=== PATIENT | female | born 1985 | race Caucasian/White ===

== ENCOUNTER 2022-11-10 15:19 | Emergency (ER) | payer BC, SELFPAY ==
[2022-11-10 15:35] VITALS: BP 127/91; PULSE 103; RESP 16; TEMP 37.1; O2SAT 96; BMI 25.1
[2022-11-10 17:03] VITALS: BP 130/88; PULSE 85; RESP 16; TEMP 36.7; O2SAT 96
--- NOTE | 2022-11-10 18:46 | ED_ITS ---
HPI - General Adult General Chief complaint: Extremity Pain/Injury, Upper Stated complaint: Cold sensation R side body Time Seen by Provider: 11/10/22 18:14 History of Present Illness HPI narrative: Spoke with Dr Reid over the phone today. Has hx of Reynalds disease, however over the last few days, just the right arm and right leg have been turning colors and going numb. Patient stated her toddler sat on her neck 3 weeks ago and has been having increasingly more pain in the neck since then. Right had turned a purplish in triage but was resolved when position would change or elevate arm. 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 Has orthostatic intolerance as well. 37-year-old woman sent by primary care provider to the emergency department with concern of apparent neck injury. She is right-hand dominant. Notes a history of Raynaud's but when questioned further sounds like that diagnosis has not been formally made and isn't currently seeing a psychological tests sales agent. Intermittently over the last 2 weeks right arm and right leg have been feeling cool. More specifically the right foot. This can occur maybe 10 times a day. Her hand can be tingly as well especially with elevation. She has some headache in a band over her forehead and down around to her neck and soreness around her neck is been increasingly more uncomfortable. Tongue has also been numb over this time as well. Around 2 weeks ago was seated cross-legged on the floor when her toddler sounds like jumped on her back/neck hyper flexing her neck in the process. She is not describing episodes of focal/limb weakness. Later mentions a history of migraines as well. Complicated history where had COVID 3 years ago with numerous residual symptoms including brain fog and POTS among others, so much so that has had to go on disability. Has been accomplished academic at the collegiate level. Related Data Home Medications Medication Instructions Recorded Confirmed levothyroxine 137 mcg tablet 137 mcg PO DAILY 07/22/22 11/10/22 (Synthroid) naltrexone 50 mg tablet 4.5 mg PO QDAY 07/22/22 07/22/22 sertraline 100 mg tablet 100 mg PO QAM 11/10/22 11/10/22 trazodone 100 mg tablet 100 mg PO QPM 11/10/22 11/10/22 zolpidem 10 mg tablet 10 mg PO QPM PRN insomnia 11/10/22 11/10/22 Allergies Allergy/AdvReac Type Severity Reaction Status Date / Time No Known Drug Allergies Allergy Verified 11/10/22 15:34 Review of Systems Status of ROS: Reports: 6 or more systems reviewed and unremarkable except as noted in History and below [facility] Social History Smoking Status: Never smoker Do you use any of these nicotine containing products: None Second hand tobacco smoke exposure: No How often do you have a drink containing alcohol: never AUDIT-C Alcohol total score: 0 Non-prescribed substance use: denies use service: No Exam Narrative: Exam Narrative: Pleasant. Lying flat per preference when I enter the room. Cranial nerves 2-12 are intact. Speaking easily breathing easily. Head looks to be atraumatic. She does have a good deal of trapezial muscle tension more so on the right than the left and uncomfortable here as well. No midline tenderness. Neck is supple. Lungs are clear. Heart with regular rate and rhythm without murmur rub or gallop. She has full strength in her extremities. Subjectively tingly in her right hand with elevation. Negative compression testing considering carpal tunnel. As she holds her hands down in her lap she notes that her knuckles are starting to get dark. I can appreciate maybe some subtle darkening in the MCP joints on the dorsal surface on the right hand. Has strong peripheral pulses and well perfused. Does not appear to have a loss of sensation. Skin is not cool. Const: Vital Signs, click to edit/add: Vital Signs - 24 hr 11/10/22 15:35 11/10/22 17:03 Temperature 98.8 F 98.1 F Pulse Rate [Pulse Oximeter] 103 H 85 Respiratory Rate 16 16 Blood Pressure [Le ft Upper Arm] 127/91 H 130/88 Pulse Oximetry 96 96 Oxygen Delivery Me thod Room Air Room Air Documenting provider has reviewed patient's vital signs: yes Course Vital Signs Vital signs: Initial Vital Signs Temperature 98.8 F 11/10/22 15:35 Temperature Source Temporal Artery Scan 11/10/22 15:35 Pulse Rate 103 H 11/10/22 15:35 Pulse Rhythm Regular 11/10/22 15:35 Pulse Strength 3+ Normal 11/10/22 15:35 Respiratory Rate 16 11/10/22 15:35 Blood Pressure 127/91 H 11/10/22 15:35 Blood Pressure Mean 103 11/10/22 15:35 Blood Pressure Position Sitting 11/10/22 15:35 Pulse Oximetry 96 11/10/22 15:35 Oxygen Delivery Method Room Air 11/10/22 15:35 Vital Signs Temperature 98.8 F 11/10/22 15:35 Pulse Rate 103 H 11/10/22 15:35 Respiratory Rate 16 11/10/22 15:35 Blood Pressure 127/91 H 11/10/22 15:35 Pulse Oximetry 96 11/10/22 15:35 Oxygen Delivery Method Room Air 11/10/22 15:35 Temperature 98.1 F 11/10/22 17:03 Pulse Rate 85 11/10/22 17:03 Respiratory Rate 16 11/10/22 17:03 Blood Pressure 130/88 11/10/22 17:03 Pulse Oximetry 96 11/10/22 17:03 Oxygen Delivery Method Room Air 11/10/22 17:03 Medical Decision Making MDM Narrative Medical decision making narrative: Has been quite some time at least more than 6 months and she has had any lab oratory evaluation. I think that is reasonable to check. Would not be checking vitamin levels that might be contributing to some of these symptoms. With the tongue as described along with these vague symptoms in the extremities might warrant central imaging. I do not think there are findings consistent with a neck injury beyond cervical strain/sprain and tension causing some headache. It does appear to be peripheral vascular in nature as described. Symptoms appear to long induration or quickly intermittent I think to be consistent with migraine. Did discuss with Neurology on-call and will proceed MRI of the brain; unusually able to do that at this late hour. Labs are wholly unremarkable including CBC and chemistries and inflammatory markers. I review MRI brain images. Radiology over-read as below The paranasal sinuses demonstrate mild ethmoid air cell and maxillary sinus mucosal thickening. The mastoid air cells demonstrate fluid on the left. The calvarium is unremarkable. IMPRESSION: 1. No acute ischemia in the brain. 2. Few non-specific foci of T2/FLAIR signal hyperintensity in the right frontal subcortical white matter. Differential considerations include sequelae of migraines, prior trauma, infection, microangiopathic changes or demyelination. I discussed these finding with Ms. Arnold. Sounds like these are not new findings. Lab Data Lab results reviewed: Yes I reviewed the patient's lab results Labs: Lab Results 11/10/22 Range/Units 18:52 WBC 5.80 (4.50-11.00) K/uL RBC 4.86 (4.00-5.20) m/uL Hgb 14.2 (12.0-16.0) gm/dL Hct 41.9 (33.0-51.0) % MCV 86 (80-100) fL MCH 29 (26-34) pg MCHC 34 (32-36) gm/dL RDW Coeff of Jose 11.6 (11.5-15.5) % Plt Count 247 (140-440) K/uL Neut % (Auto) 53.1 (42.0-72.0) % Lymph % (Auto) 35.5 (20-44) % Petroleum % (Auto) 9.8 (0.0-11.0) % Eos % (Auto) 0.7 (0.0-7.0) % Baso % (Auto) 0.7 (0.0-3.0) % Neut # (Auto) 3.08 (1.7-7.0) K/uL Lymph # (Auto) 2.06 (0.90-2.90) K/uL Petroleum # (Auto) 0.60 (0.00-0.90) K/UL Eos # (Auto) 0.04 (0.00-0.50) K/uL Baso # (Auto) 0.04 (0.00-0.30) K/uL ESR 7 (2-20) mm/hr Sodium 139 (135-149) mmol/L Potassium 4.6 (3.6-5.1) mmol/L Chloride 104 (96-114) mmol/L Carbon Dioxide 24 (20-32) mmol/L BUN 17 (5-24) mg/dL Creatinine 0.5 (0.5-1.5) mg/dL Estimated Creat Clear 157.87 Estimated GFR 122 ml/min Glucose 94 (60-115) mg/dL Calcium 9.3 (8.4-10.6) mg/dL Magnesium 2.1 (1.5-2.6) mg/dL C-Reactive Protein 0.6 (0.5-1.0) mg/dL Discharge Plan Discharge Clinical Impression: Paresthesia, Neck strain Condition: Stable Additional Instructions: I think some of your headache is related to tension in strained neck muscles. These pull-down exercises as demonstrated doing them few times daily might be helpful. See also handout on upper back exercises. I would follow-up with Dr. Reid for next steps/recommendations and evaluation. Might include evaluation again by neurology or vitamin levels... Hard to say that this is not related to COVID injury or history of migraines but then you also have what would seem to be peripheral vascular symptomatology. Be seen otherwise for new and focal weakness, marked density of this paresthesia, uncontrolled headache, associated fever. Activity Level: No Restrictions Discharge Diet: Regular Prescriptions: No Action levothyroxine [Synthroid] 137 mcg tablet 137 mcg PO DAILY Patient Comments: TAKE 1 TABLET (137 MCG) BY MOUTH BEFORE BREAKFAST. naltrexone 50 mg tablet 4.5 mg PO QDAY sertraline 100 mg tablet 100 mg PO QAM trazodone 100 mg tablet 100 mg PO QPM zolpidem 10 mg tablet 10 mg PO QPM PRN (Reason: insomnia) Follow Up/Referrals: Provider,Not a Local [Primary Care Provider] -
[2022-11-10 18:58] LABS: Basophils Absolute Auto 0.04 K/uL (0.00-0.30); Basophils Percent Auto 0.7 % (0.0-3.0); Eosinophils Absolute Auto 0.04 K/uL (0.00-0.50); Eosinophils Percent Auto 0.7 % (0.0-7.0); Hematocrit 41.9 % (33.0-51.0); Hemoglobin* 14.2 gm/dL (12.0-16.0); Immature Granulocytes Abs Auto 0.01 K/uL (0.00-0.30); Immature Granulocytes Pct Auto 0.2 %; Lymphocytes Absolute Auto 2.06 K/uL (0.90-2.90); Lymphocytes Percent Auto 35.5 % (20-44); Mean Corpuscular HGB Conc 34 gm/dL (32-36); Mean Corpuscular Hemoglobin 29 pg (26-34); Mean Corpuscular Volume 86 fL (80-100); Monocytes Percent Auto 9.8 % (0.0-11.0); Neutrophils Absolute Auto 3.08 K/uL (1.7-7.0); Neutrophils Percent Auto 53.1 % (42.0-72.0); Platelet Count* 247 K/uL (140-440); RDW Coefficient of Variation % 11.6 % (11.5-15.5); Red Blood Count 4.86 m/uL (4.00-5.20)
[2022-11-10 19:16] LABS: Chloride* 104 mmol/L (96-114); Potassium* 4.6 mmol/L (3.6-5.1); Sodium* 139 mmol/L (135-149)
[2022-11-10 19:17] LABS: Slide Review Reflex No
[2022-11-10 19:19] LABS: Creatinine* 0.5 mg/dL (0.5-1.5); Est. Creatinine Clearance* 157.87; Estimated Glomerular Filt Rate 122 ml/min
[2022-11-10 19:20] LABS: Blood Urea Nitrogen* 17 mg/dL (5-24); Calcium* 9.3 mg/dL (8.4-10.6); Carbon Dioxide* 24 mmol/L (20-32); Glucose* 94 mg/dL (60-115)
[2022-11-10 19:23] LABS: C Reactive Protein* 0.6 mg/dL (0.5-1.0)
--- NOTE | 2022-11-10 19:27 | CRLHL7_ITS ---
For Patients: As a result of the Cures Act, medical imaging exams and procedure reports are released immediately into your electronic medical record. You may view this report before your referring provider. If you have questions, please contact your health care provider. EXAMINATION: MRI BRAIN DATE: 11/10/2022 HISTORY: Patient with tongue numbness. TECHNIQUE: Multi-sequence, multiplanar MRI examination of the brain was performed. COMPARISON: None. FINDINGS: There is no restricted diffusion in the brain to indicate the presence of acute ischemia. There are a few foci of T2/FLAIR signal hyperintensity in the right frontal subcortical white matter. The ventricular size is normal for age. The orbits are unremarkable. The paranasal sinuses demonstrate mild ethmoid air cell and maxillary sinus mucosal thickening. The mastoid air cells demonstrate fluid on the left. The calvarium is unremarkable. IMPRESSION: 1. No acute ischemia in the brain. 2. Few non-specific foci of T2/FLAIR signal hyperintensity in the right frontal subcortical white matter. Differential considerations include sequelae of migraines, prior trauma, infection, microangiopathic changes or demyelination. Dictated by: Wilberto Tan MD @ 11/10/2022 20:51:24 (Electronically Signed)
[2022-11-10 19:29] LABS: Magnesium* 2.1 mg/dL (1.5-2.6)
[2022-11-10 19:54] LABS: Erythrocyte SedimentationRate* 7 mm/hr (2-20)
== END 2022-11-10 22:01 | disposition home or self-care (01) ==
PROVIDERS: Emergency Provider Family Medicine
DX: S16.1XXA Strain of muscle, fascia and tendon at neck level, initial encounter (principal); R20.2 Paresthesia of skin
CPT/HCPCS: 36415; 70551; 80048; 83735; 85025; 85651; 86140; 99283; 99284

== ENCOUNTER 2022-12-22 06:34 | Emergency (ER) | payer MEDICARE, BC, SELFPAY ==
[2022-12-22] VITALS (9 sets, daily range): BP systolic 111–124; BP diastolic 75–82; PULSE 60–85; RESP 18; TEMP 36.2; O2SAT 96–100
[2022-12-22 07:31] LABS: Basophils Absolute Auto 0.01 K/uL (0.00-0.30); Basophils Percent Auto 0.2 % (0.0-3.0); Eosinophils Absolute Auto 0.03 K/uL (0.00-0.50); Eosinophils Percent Auto 0.6 % (0.0-7.0); Hematocrit 37.8 % (33.0-51.0); Hemoglobin* 12.9 gm/dL (12.0-16.0); Immature Granulocytes Abs Auto 0.01 K/uL (0.00-0.30); Immature Granulocytes Pct Auto 0.2 %; Lymphocytes Percent Auto 16.9 % (20-44); Mean Corpuscular HGB Conc 34 gm/dL (32-36); Mean Corpuscular Hemoglobin 29 pg (26-34); Mean Corpuscular Volume 85 fL (80-100); Monocytes Percent Auto 6.9 % (0.0-11.0); Neutrophils Percent Auto 75.2 % (42.0-72.0); Platelet Count* 245 K/uL (140-440); RDW Coefficient of Variation % 11.3 % (11.5-15.5); Red Blood Count 4.43 m/uL (4.00-5.20)
[2022-12-22 07:35] LABS: Slide Review Reflex No
[2022-12-22 07:44] LABS: Albumin* 4.4 g/dL (3.3-5.0); Chloride* 105 mmol/L (96-114); Sodium* 137 mmol/L (135-149)
[2022-12-22 07:45] LABS: Potassium* 3.8 mmol/L (3.6-5.1)
--- NOTE | 2022-12-22 07:45 | ED.GENADULT ---
HPI - General Adult General Date Seen: 12/22/22 <Deepak Pool MD - Last Filed: 12/22/22 13:05> Chief complaint: Abdominal Pain <Deepak Pool MD - Last Filed: 12/22/22 13:05> Stated complaint: L abdominal pain for a week <Deepak Pool MD - Last Filed: 12/22/22 13:05> Time Seen by Provider: 12/22/22 07:14 <Deepak Pool MD - Last Filed: 12/22/22 13:05> Source: patient <Deepak Pool MD - Last Filed: 12/22/22 13:05> Mode of arrival: ambulatory <Deepak Pool MD - Last Filed: 12/22/22 13:05> Limitations: no limitations <Deepak Pool MD - Last Filed: 12/22/22 13:05> History of Present Illness HPI narrative: Patient comes in for the 2nd time in a week with complaints of abdominal pain. One week ago she was evaluated with labs and a CT scan and her pain was felt to be musculoskeletal. She is discharged with Zofran and Toradol in seem to be getting better for a few days. Now for the past couple of days her pain is worse prompting her to return. There has been no fevers but she does have chills. Her pain is mainly in the left upper quadrant but she also has pain in the right upper quadrant. No previous abdominal surgeries. No issue with bowel or bladder function. No dysuria, urgency, frequency. The pain did seem to get worse last time after she had eaten [employer] but she has not eaten any worrisome foods in the last couple of days. She is taking with Pepcid AC and ibuprofen for pain. She denies symptoms of acid reflux. There have been no black or bloody stools. She is on low-dose naltrexone as an experimental treatment for chronic fatigue. She also takes Synthroid, sertraline, trazodone, Ambien regularly. <Deepak Pool MD - Last Filed: 12/22/22 13:05> Related Data Home medications: Home Medications Medication Instructions Recorded Confirmed levothyroxine 137 mcg tablet 137 mcg PO DAILY 07/22/22 11/10/22 (Synthroid) naltrexone 50 mg tablet 4.5 mg PO QDAY 07/22/22 07/22/22 sertraline 100 mg tablet 100 mg PO QAM 11/10/22 11/10/22 trazodone 100 mg tablet 100 mg PO QPM 11/10/22 11/10/22 zolpidem 10 mg tablet 10 mg PO QPM PRN insomnia 11/10/22 11/10/22 Previous Rx's Medication Instructions Recorded lorazepam 1 mg tablet 0.5 - 1 mg (0.5 - 1 x 1 mg) PO TID 12/22/22 PRN #8 tabs <Deepak Pool MD - Last Filed: 12/22/22 13:05> Allergies/adverse reactions: Allergies Allergy/AdvReac Type Severity Reaction Status Date / Time No Known Drug Allergies Allergy Verified 12/15/22 19:44 <Deepak Pool MD - Last Filed: 12/22/22 13:05> Review of Systems Narrative: Review of systems is outlined above otherwise noted to be negative. She has anxiety and depression as well as chronic fatigue. <Deepak Pool MD - Last Filed: 12/22/22 13:05> [facility] Social History: Social History Smoking Status: Never smoker Do you use any of these nicotine containing products: None Second hand tobacco smoke exposure: No How often do you have a drink containing alcohol: never How often do you have six or more drinks on one occasion: Never AUDIT-C Alcohol total score: 0 Non-prescribed substance use: denies use service: No <Deepak Pool MD - Last Filed: 12/22/22 13:05> Exam Narrative: Exam Narrative: Vitals noted. She is shivering loudly. HEENT: Conjunctiva clear. Posterior pharynx is clear without erythema or exudate. Neck is supple without adenopathy. Lungs: Clear to auscultation in all cooper. No wheezes, rales, rhonchi. Heart: Regular rate and rhythm without murmur. Abdomen: Soft with no palpable masses. She is tender really throughout most of the abdomen but worst in the left upper quadrant and right upper quadrant. No guarding, rigidity, rebound. Bowel sounds are normal. Extremities: No cyanosis or edema. Good distal pulses. Skin: No abnormalities noted of the exposed skin. Neurologic: Awake, alert, fully oriented. Neurologic exam is nonfocal. <Deepak Pool MD - Last Filed: 12/22/22 13:05> Const: Vital Signs, click to edit/add: Vital Signs - 24 hr 12/22/22 06:40 12/22/22 07:49 12/22/22 08:00 Temperature 97.2 F L Pulse Rate 61 60 Pulse Rate [Left P ulse Oximeter] 84 Respiratory Rate 18 Blood Pressure Blood Pressure [Ri ght Upper Arm] 124/76 Pulse Oximetry 98 96 97 Oxygen Delivery Me thod Room Air 12/22/22 08:14 12/22/22 08:30 12/22/22 08:31 Temperature Pulse Rate 82 72 85 Pulse Rate [Left P ulse Oximeter] Respiratory Rate Blood Pressure 114/82 124/75 Blood Pressure [Ri ght Upper Arm] Pulse Oximetry 97 100 98 Oxygen Delivery Me thod 12/22/22 09:17 12/22/22 09:18 12/22/22 09:30 Temperature Pulse Rate 62 61 61 Pulse Rate [Left P ulse Oximeter] Respiratory Rate Blood Pressure 111/77 Blood Pressure [Ri ght Upper Arm] Pulse Oximetry 97 96 97 Oxygen Delivery Me thod <Deepak Pool MD - Last Filed: 12/22/22 13:05> Vital Signs, click to edit/add: Vital Signs - 24 hr 12/22/22 06:40 12/22/22 07:49 12/22/22 08:00 Temperature 97.2 F L Pulse Rate 61 60 Pulse Rate [Left P ulse Oximeter] 84 Respiratory Rate 18 Blood Pressure Blood Pressure [Ri ght Upper Arm] 124/76 Pulse Oximetry 98 96 97 Oxygen Delivery Me thod Room Air 12/22/22 08:14 12/22/22 08:30 12/22/22 08:31 Temperature Pulse Rate 82 72 85 Pulse Rate [Left P ulse Oximeter] Respiratory Rate Blood Pressure 114/82 124/75 Blood Pressure [Ri ght Upper Arm] Pulse Oximetry 97 100 98 Oxygen Delivery Me thod 12/22/22 09:17 12/22/22 09:18 12/22/22 09:30 Temperature Pulse Rate 62 61 61 Pulse Rate [Left P ulse Oximeter] Respiratory Rate Blood Pressure 111/77 Blood Pressure [Ri ght Upper Arm] Pulse Oximetry 97 96 97 Oxygen Delivery Me thod <Deepak Luna MD - Last Filed: 12/26/22 14:12> Course Course Hospital Course: Patient is seen and examined. Is certainly possible that this is pancreatitis or cholecystitis despite the negative workup one week ago. I did give her 50 mcg of IV fentanyl despite her use of low-dose naltrexone. Unclear how well this will work. Labs and another CT of her abdomen are ordered. She is also given a L of saline. <Deepak Pool MD - Last Filed: 12/22/22 13:05> Reevaluation(s) Reevaluation #1: After all of her labs came back normal the patient reconsider the need for another CT scan. By that point I would turn her care over to Dr. Luna spent some time addressing the underlying anxiety issues. Please see his note for completion of her encounter. <Deepak Pool MD - Last Filed: 12/22/22 13:05> Reevaluation #2: Jeremy -- I received Allison at change of shift pending CT imaging. Went to re-evaluate. Was tremulous in apparent discomfort by what I perceived was marked anxiety. She was questioning need for repeat CT scan as it has just been done and labs noted to be normal. We discussed further potential cause of her discomfort. She recalls again how her child had need her caused pain to this area of her upper left abdomen. Pain seems to have escalated since. Re-examination she has some tenderness along the left rib margin. Not clearly reproducible into the abdomen. Does note some gastrointestinal symptoms too or least the discomfort seemed amplified after eating [employer]. Decided to trial Zofran, lidocaine patch, GI cocktail and lorazepam. On reassessment lorazepam I think was particularly effective. Seems more relaxed. Able to discuss this as above. I think complicated by anxiety initial perception of pain has gotten amplified tremendously into almost a regional response. Overall much improved. Please see patient discharge plan. <Deepak Luna MD - Last Filed: 12/26/22 14:12> Vital Signs Vital signs: Initial Vital Signs Temperature 97.2 F L 12/22/22 06:40 Temperature Source Temporal Artery Scan 12/22/22 06:40 Pulse Rate 84 12/22/22 06:40 Pulse Rhythm Regular 12/22/22 06:40 Respiratory Rate 18 12/22/22 06:40 Blood Pressure 124/76 12/22/22 06:40 Blood Pressure Mean 92 12/22/22 06:40 Blood Pressure Position Sitting 12/22/22 06:40 Pulse Oximetry 98 12/22/22 06:40 Oxygen Delivery Method Room Air 12/22/22 06:40 Vital Signs Temperature 97.2 F L 12/22/22 06:40 Pulse Rate 84 12/22/22 06:40 Respiratory Rate 18 12/22/22 06:40 Blood Pressure 124/76 12/22/22 06:40 Pulse Oximetry 98 12/22/22 06:40 Oxygen Delivery Method Room Air 12/22/22 06:40 Temperature 97.2 F L 12/22/22 06:40 Pulse Rate 61 12/22/22 09:30 Respiratory Rate 18 12/22/22 06:40 Blood Pressure 111/77 12/22/22 09:18 Pulse Oximetry 97 12/22/22 09:30 Oxygen Delivery Method Room Air 12/22/22 06:40 <Deepak Pool MD - Last Filed: 12/22/22 13:05> Initial Vital Signs Temperature 97.2 F L 12/22/22 06:40 Temperature Source Temporal Artery Scan 12/22/22 06:40 Pulse Rate 84 12/22/22 06:40 Pulse Rhythm Regular 12/22/22 06:40 Respiratory Rate 18 12/22/22 06:40 Blood Pressure 124/76 12/22/22 06:40 Blood Pressure Mean 92 12/22/22 06:40 Blood Pressure Position Sitting 12/22/22 06:40 Pulse Oximetry 98 12/22/22 06:40 Oxygen Delivery Method Room Air 12/22/22 06:40 Vital Signs Temperature 97.2 F L 12/22/22 06:40 Pulse Rate 84 12/22/22 06:40 Respiratory Rate 18 12/22/22 06:40 Blood Pressure 124/76 12/22/22 06:40 Pulse Oximetry 98 12/22/22 06:40 Oxygen Delivery Method Room Air 12/22/22 06:40 Temperature 97.2 F L 06/16/23 06:40 Pulse Rate 61 12/22/22 09:30 Respiratory Rate 18 12/22/22 06:40 Blood Pressure 111/77 12/22/22 09:18 Pulse Oximetry 97 12/22/22 09:30 Oxygen Delivery Method Room Air 12/22/22 06:40 <Deepak Luna MD - Last Filed: 12/26/22 14:12> Medical Decision Making Lab Data Labs: Lab Results 12/22/22 Range/Units 07:20 WBC 5.10 (4.50-11.00) K/uL RBC 4.43 (4.00-5.20) m/uL Hgb 12.9 (12.0-16.0) gm/dL Hct 37.8 (33.0-51.0) % MCV 85 (80-100) fL MCH 29 (26-34) pg MCHC 34 (32-36) gm/dL RDW Coeff of Jose 11.3 L (11.5-15.5) % Plt Count 245 (140-440) K/uL Neut % (Auto) 75.2 H (42.0-72.0) % Lymph % (Auto) 16.9 L (20-44) % Sequoyah % (Auto) 6.9 (0.0-11.0) % Eos % (Auto) 0.6 (0.0-7.0) % Baso % (Auto) 0.2 (0.0-3.0) % Neut # (Auto) 3.80 (1.7-7.0) K/uL Lymph # (Auto) 0.90 (0.90-2.90) K/uL Sequoyah # (Auto) 0.40 (0.00-0.90) K/UL Eos # (Auto) 0.03 (0.00-0.50) K/uL Baso # (Auto) 0.01 (0.00-0.30) K/uL Sodium 137 (135-149) mmol/L Potassium 3.8 (3.6-5.1) mmol/L Chloride 105 (96-114) mmol/L Carbon Dioxide 24 (20-32) mmol/L BUN 13 (5-24) mg/dL Creatinine 0.6 (0.5-1.5) mg/dL Estimated GFR 117 ml/min Glucose 99 (60-115) mg/dL Calcium 9.1 (8.4-10.6) mg/dL Total Bilirubin 0.4 (0.1-1.5) mg/dL Direct Bilirubin 0.0 (0.0-0.5) mg/dL AST 23 (12-35) U/L ALT 19 (4-35) U/L Alkaline Phosphatase 42 (40-150) U/L Total Protein 7.7 (6.0-8.3) g/dL Albumin 4.4 (3.3-5.0) g/dL Lipase 183 (23-300) U/L <Deepak Pool MD - Last Filed: 12/22/22 13:05> Lab Results 12/22/22 Range/Units 07:20 WBC 5.10 (4.50-11.00) K/uL RBC 4.43 (4.00-5.20) m/uL Hgb 12.9 (12.0-16.0) gm/dL Hct 37.8 (33.0-51.0) % MCV 85 (80-100) fL MCH 29 (26-34) pg MCHC 34 (32-36) gm/dL RDW Coeff of Jose 11.3 L (11.5-15.5) % Plt Count 245 (140-440) K/uL Neut % (Auto) 75.2 H (42.0-72.0) % Lymph % (Auto) 16.9 L (20-44) % Sequoyah % (Auto) 6.9 (0.0-11.0) % Eos % (Auto) 0.6 (0.0-7.0) % Baso % (Auto) 0.2 (0.0-3.0) % Neut # (Auto) 3.80 (1.7-7.0) K/uL Lymph # (Auto) 0.90 (0.90-2.90) K/uL Sequoyah # (Auto) 0.40 (0.00-0.90) K/UL Eos # (Auto) 0.03 (0.00-0.50) K/uL Baso # (Auto) 0.01 (0.00-0.30) K/uL Sodium 137 (135-149) mmol/L Potassium 3.8 (3.6-5.1) mmol/L Chloride 105 (96-114) mmol/L Carbon Dioxide 24 (20-32) mmol/L BUN 13 (5-24) mg/dL Creatinine 0.6 (0.5-1.5) mg/dL Estimated GFR 117 ml/min Glucose 99 (60-115) mg/dL Calcium 9.1 (8.4-10.6) mg/dL Total Bilirubin 0.4 (0.1-1.5) mg/dL Direct Bilirubin 0.0 (0.0-0.5) mg/dL AST 23 (12-35) U/L ALT 19 (4-35) U/L Alkaline Phosphatase 42 (40-150) U/L Total Protein 7.7 (6.0-8.3) g/dL Albumin 4.4 (3.3-5.0) g/dL Lipase 183 (23-300) U/L <Deepak Luna MD - Last Filed: 12/26/22 14:12> Discharge Plan Discharge Clinical Impression: Left sided abdominal pain of unknown cause <Deepak Pool MD - Last Filed: 12/22/22 13:05> Patient Disposition: Home, Self-Care <Deepak Pool MD - Last Filed: 12/22/22 13:05> Condition: Improved <Deepak Pool MD - Last Filed: 12/22/22 13:05> Additional Instructions: As discussed, unclear really how this all involves. You have a number of potential factors. I would consider taking a medication like omeprazole, which is available [id number], daily for 2 weeks and then reassessing your stomach/GI symptoms. Can buy those lidocaine patches [id number] and use them if you find it helpful. Otherwise though I would ice, using those ice bags we talked about, 2 to 3 times daily over the next few days the area from where we think pain has been emanating. Might also take ibuprofen somewhere between 400-800 mg per dose or up to 500 mg of naproxen 2 times daily, either with a little food. If the trembling overwhelms and also with associated pain, can use the lorazepam for the short term. <Deepak Pool MD - Last Filed: 12/22/22 13:05> Prescriptions: New lorazepam 1 mg tablet 0.5 - 1 mg PO TID PRNQty: 8 0RF No Action levothyroxine [Synthroid] 137 mcg tablet 137 mcg PO DAILY Patient Comments: TAKE 1 TABLET (137 MCG) BY MOUTH BEFORE BREAKFAST. naltrexone 50 mg tablet 4.5 mg PO QDAY sertraline 100 mg tablet 100 mg PO QAM trazodone 100 mg tablet 100 mg PO QPM zolpidem 10 mg tablet 10 mg PO QPM PRN (Reason: insomnia) <Deepak Pool MD - Last Filed: 12/22/22 13:05> Follow Up/Referrals: Belem Reid MD [Primary Care Provider] - <Deepak Pool MD - Last Filed: 12/22/22 13:05> Stand Alone Forms: [employer] Info Instructions <Deepak Pool MD - Last Filed: 12/22/22 13:05>
[2022-12-22 07:46] LABS: Creatinine* 0.6 mg/dL (0.5-1.5); Estimated Glomerular Filt Rate 117 ml/min
[2022-12-22] MEDS: fentaNYL 100 MCG/2 ML inj 50 MCG IVP (07:46)
[2022-12-22] MEDS: 0.9 % SODIUM CHLORIDE 1000 ml 1,000 ML IV (07:46)
[2022-12-22 07:47] LABS: Alkaline Phosphatase* 42 U/L (40-150); Aspartate Amino Transferase* 23 U/L (12-35); Bilirubin Total* 0.4 mg/dL (0.1-1.5); Blood Urea Nitrogen* 13 mg/dL (5-24); Carbon Dioxide* 24 mmol/L (20-32); Glucose* 99 mg/dL (60-115); Lipase* 183 U/L (23-300); Total Protein* 7.7 g/dL (6.0-8.3)
[2022-12-22 07:48] LABS: Alanine Aminotransferase* 19 U/L (4-35); Calcium* 9.1 mg/dL (8.4-10.6)
[2022-12-22] MEDS: LIDOCAINE 5% PATCH 1 PATCH TRANSDERMA (09:22)
[2022-12-22] MEDS: GI COCKTAIL (VISC LIDO/ANTACID) 30 ML PO (09:23)
[2022-12-22] MEDS: LORazepam 2 MG/ML inj 0.5 MG IVP (09:23)
[2022-12-22] MEDS: ONDANSETRON 2 MG/ML inj 4 MG IVP (09:23)
== END 2022-12-22 10:36 | disposition home or self-care (01) ==
PROVIDERS: Emergency Provider Family Medicine; PCP Family Medicine
DX: R10.9 Unspecified abdominal pain (principal)
CPT/HCPCS: 36415; 80048; 80076; 83690; 85025; 96361; 96374; 96375; 99284; A9270; J2060; J2405; J3010; J7030

== ENCOUNTER 2022-12-30 08:10 | Emergency (ER) | payer MEDICARE, BC, SELFPAY ==
[2022-12-30 08:16] VITALS: BP 131/90; PULSE 97; RESP 16; TEMP 36.5; O2SAT 99; BMI 25.1
--- NOTE | 2022-12-30 08:33 | ED_ITS ---
HPI - General Adult General Chief complaint: Neck Injury/Pain Stated complaint: Stiff neck,rash Time Seen by Provider: 12/30/22 08:13 Source: patient Mode of arrival: ambulatory Limitations: no limitations History of Present Illness HPI narrative: 37-year-old female coming in today complaining of neck pain, left side greater than the right going on since Sunday. However, she tells me she has had neck pain for several weeks now. She has been evaluated in our ER before for neck pain and neurologic symptoms with an MRI just last month. She states that she came in today because she also developed a rash on both shoulders and she is concerned that she has meningitis. She denies fevers or chills. No nausea or vomiting. She has chronic neurologic deficits including blurry vision, brain fog, tongue and facial numbness that comes and goes, chronic headaches-none of these things are new or changed. She denies any recent traveling. She denies any new soaps or lotions. She states that her rash does not itch or otherwise bother her. Related Data Home Medications Medication Instructions Recorded Confirmed levothyroxine 137 mcg tablet 137 mcg PO DAILY 07/22/22 11/10/22 (Synthroid) naltrexone 50 mg tablet 4.5 mg PO QDAY 07/22/22 07/22/22 sertraline 100 mg tablet 100 mg PO QAM 11/10/22 11/10/22 trazodone 100 mg tablet 100 mg PO QPM 11/10/22 11/10/22 zolpidem 10 mg tablet 10 mg PO QPM PRN insomnia 11/10/22 11/10/22 Previous Rx's Medication Instructions Recorded lorazepam 1 mg tablet 0.5 - 1 mg (0.5 - 1 x 1 mg) PO TID 12/22/22 PRN #8 tabs Allergies Allergy/AdvReac Type Severity Reaction Status Date / Time No Known Drug Allergies Allergy Verified 12/15/22 19:44 PFSH PFS Social History Smoking Status: Never smoker Do you use any of these nicotine containing products: None Second hand tobacco smoke exposure: No How often do you have a drink containing alcohol: never How often do you have six or more drinks on one occasion: Never AUDIT-C Alcohol total score: 0 Non-prescribed substance use: denies use service: No Exam Narrative: Exam Narrative: Well-nourished well-developed patient in no acute distress. Alert and oriented x3. Answers questions appropriately. Mood and affect are appropriate. Thoughts are goal oriented and rational. No tangential or magical thinking noted. Patient speaks in full sentences without needing to catch her breath. HEENT: Normocephalic atraumatic. Pupils are equally round reactive to light. Extraocular muscles are intact. Conjunctivae are moist without any icterus noted. Moist mucous membranes. Posterior pharynx is normal. Neck is soft without any lymphadenopathy or thyromegaly. No masses are appreciated. She has no significant tenderness to palpation of the neck. No cervical spine tenderness. She has full range of motion with flexion, extension, sideways bending and rotation. She is able to sit up in lay down without pain at the ne ck or back. Skin: Well perfused, dry and warm. Patient does have several papules that are pink in color on both shoulders. They are blanchable. She does have a couple areas where it looks like she has been scratching. Strength is 5/5 of the upper and lower extremities. Cranial nerves 3-12 are normal. Gait is normal. Const: Vital Signs, click to edit/add: Vital Signs - 24 hr 12/30/22 08:16 Temperature 97.7 F Pulse Rate [Pulse Oximeter] 97 Respiratory Rate 16 Blood Pressure [Ri ght Upper Arm] 131/90 H Pulse Oximetry 99 Oxygen Delivery Me thod Room Air Course Course Hospital Course: We discussed today the patient does not appear to have meningitis given her description of her symptoms as well as her physical examination. Patient is reassured. As far as the rash, unclear etiology. We discussed using cortisone cream for a few days to see if that helps, otherwise follow-up with her primary care provider if it is changing. Patient was in agreement and had no other questions. Vital Signs Vital signs: Initial Vital Signs Temperature 97.7 F 12/30/22 08:16 Temperature Source Temporal Artery Scan 12/30/22 08:16 Pulse Rate 97 12/30/22 08:16 Pulse Rhythm Regular 12/30/22 08:16 Respiratory Rate 16 12/30/22 08:16 Blood Pressure 131/90 H 12/30/22 08:16 Blood Pressure Mean 103 12/30/22 08:16 Blood Pressure Position Supine 12/30/22 08:16 Pulse Oximetry 99 12/30/22 08:16 Oxygen Delivery Method Room Air 12/30/22 08:16 Vital Signs Temperature 97.7 F 12/30/22 08:16 Pulse Rate 97 12/30/22 08:16 Respiratory Rate 16 12/30/22 08:16 Blood Pressure 131/90 H 12/30/22 08:16 Pulse Oximetry 99 12/30/22 08:16 Oxygen Delivery Method Room Air 12/30/22 08:16 Temperature 97.7 F 12/30/22 08:16 Pulse Rate 97 12/30/22 08:16 Respiratory Rate 16 12/30/22 08:16 Blood Pressure 131/90 H 12/30/22 08:16 Pulse Oximetry 99 12/30/22 08:16 Oxygen Delivery Method Room Air 12/30/22 08:16 Medical Decision Making MDM Narrative Medical decision making narrative: 37-year-old female with neck pain and rash. Plan per above. Medical Records Medical records reviewed: Yes I reviewed the patient's medical records Discharge Plan Discharge Clinical Impression: Rash, Neck pain Patient Disposition: Home, Self-Care Condition: Stable Additional Instructions: Recommend daily gentle stretching of the neck and heat to the back of the neck. Do not apply heat directly to skin. Physical therapy would be a great idea to proceed with. Follow-up with your primary care provider if your rash is not improving over the next couple of weeks. Prescriptions: No Action levothyroxine [Synthroid] 137 mcg tablet 137 mcg PO DAILY Patient Comments: TAKE 1 TABLET (137 MCG) BY MOUTH BEFORE BREAKFAST. naltrexone 50 mg tablet 4.5 mg PO QDAY sertraline 100 mg tablet 100 mg PO QAM trazodone 100 mg tablet 100 mg PO QPM zolpidem 10 mg tablet 10 mg PO QPM PRN (Reason: insomnia) lorazepam 1 mg tablet 0.5 - 1 mg PO TID PRNQty: 8 0RF Follow Up/Referrals: Belem Reid MD [Primary Care Provider] - Stand Alone [facility] Info Instructions
== END 2022-12-30 08:53 | disposition home or self-care (01) ==
LOC: ED 08:41
PROVIDERS: Emergency Provider Family Medicine; PCP Family Medicine
DX: R21 Rash and other nonspecific skin eruption (principal); M54.2 Cervicalgia
CPT/HCPCS: 99282; 99283